=== PATIENT | male | born 1965 | race Hispanic/Latino ===

== ENCOUNTER 2016-09-21 17:24 | Emergency (ER) | payer OTHER ==
[2016-09-21 17:30] VITALS: BP 131/81; PULSE 84; RESP 16; TEMP 98.2; O2SAT 100
--- NOTE | 2016-09-21 17:56 | ED PDOC ---
Upper Extremity Pain/Injury Time Seen by Provider: 09/21/16 17:31 Chief Complaint (Nursing): Finger,Hand,&Wrist Chief Complaint (Provider): Finger, Hand, & Wrist History Per: Patient History/Exam Limitations: no limitations Onset/Duration Of Symptoms: Hrs (prior to arrival (morning)) Additional Complaint(s): Rick Cordon is a 51 year old left hand dominant male who presents to ED for pain to his right 5th digit s/p injury while playing basketball this morning. Patient took aspirin prior to arrival which helped the pain. He denies any numbness or tingling to affected area. PMD: None provided Past Medical History Reviewed: Historical Data, Nursing Documentation, Vital Signs Vital Signs: Last Vital Signs Temp 98.2 F 09/21/16 17:27 Pulse 84 09/21/16 17:27 Resp 16 09/21/16 17:27 BP 131/81 09/21/16 17:27 Pulse Ox 100 09/21/16 17:27 - Medical History PMH: No Chronic Diseases - Surgical History Other surgeries: left rotator cuff repair - Family History Family History: States: No Known Family Hx - Living Arrangements Living Arrangements: With Family - Social History Current smoker - smoking cessation education provided: No Ex-Smoker (has not smoked in the last 12 months): No Alcohol: Social Drugs: Denies - Allergies Allergies/Adverse Reactions: Allergies Allergy/AdvReac Type Severity Reaction Status Date / Time No Known Allergies Allergy Verified 09/21/16 17:27 Review of Systems ROS Statement: Except As Marked, All Systems Reviewed And Found Negative Musculoskeletal: Positive for: Hand Pain (right 5th digit pain) Physical Exam - Reviewed Nursing Documentation Reviewed: Yes Vital Signs Reviewed: Yes - Physical Exam Appears: Positive for: Well, Non-toxic, No Acute Distress Head Exam: Positive for: ATRAUMATIC Skin: Positive for: Normal Color. Negative for: Rash Eye Exam: Positive for: Normal appearance Extremity: Positive for: Tenderness (and ecchymosis to right 5th digit), Swelling (right 5th digit). Negative for: Normal ROM (decreased rom to right 5th digit ) - ECG O2 Sat by Pulse Oximetry: 100 (RA) Pulse Ox Interpretation: Normal - Other Rad Right hand x-ray X-Ray: Interpreted by Me, Viewed By Me X-Ray Interpretation: avulsion fracture to proximal aspect of proximal 5th phalanx Medical Decision Making Medical Decision Making: Time: 17:31 Impression: right 5th digit injury Plan: * Hand Right 3 Views * Pain meds declined Patient aware of x-ray findings. Procedure Note: Right 4th and 5th fingers were taya taped, metacarpal splint applied to right hand and secured with jaquelin wrap, N/V intact s/p placement. Procedure was tolerated well by patient with no complications. Patient was instructed to take NSAID's prn pain, he was provided with referral to hand paediatric surgeon and advised to follow up in 1-2 days. Patient was given copy of x-rays. Scribe Attestation: Documented by Shadia Mendez, acting as a scribe for More Donnelly PA-C. Provider Scribe Attestation: All medical record entries made by the Scribe were at my direction and personally dictated by me. I have reviewed the chart and agree that the record accurately reflects my personal performance of the history, physical exam, medical decision making, and the department course for this patient. I have also personally directed, reviewed, and agree with the discharge instructions and disposition. Disposition - Clinical Impression Clinical Impression: Finger fracture - Patient ED Disposition Is Patient to be Admitted: No Counseled Patient/Family Regarding: Studies Performed, Diagnosis, Need For Followup - Disposition Referrals: Boyd Rai MD [Medical Doctor] - Disposition: Routine/Home Disposition Time: 18:14 Condition: STABLE Additional Instructions: Ice, rest and elevate affected area. Tylenol or advil as needed for pain. Follow up with hand specialist in 1-2 days. Instructions: Finger Fracture (ED) Forms: [employer] ([place]ian)
--- NOTE | 2016-09-22 08:20 | RAD ---
PROCEDURE: Right Hand Radiographs. HISTORY: trauma COMPARISON: None. FINDINGS: BONES: Acute avulsion fracture at the lateral aspect of the proximal phalanx base of the 5th digit. JOINTS: Normal. No osteoarthritic changes. SOFT TISSUES: Normal. OTHER FINDINGS: None. IMPRESSION: Acute fracture at the proximal/ base of the 5th finger proximal phalanx.
== END 2016-09-21 18:47 | disposition home or self-care (01) ==
LOC: H.ER 17:24
DX: S62.606A Fracture of unspecified phalanx of right little finger, initial encounter for closed fracture (principal); X50.9XXA Other and unspecified overexertion or strenuous movements or postures, initial encounter; Y92.310 Basketball court as the place of occurrence of the external cause